=== PATIENT | male | born 1950 | race Caucasian/White ===

== ENCOUNTER 2023-02-14 22:04 | Inpatient (IN) | payer MEDICARE ==
[~2023-02-14] VITALS: Ht 167.6 cm; Wt 89.4 kg
[2023-02-14 22:11] VITALS: BP_SYST 154
[2023-02-14 22:56] LABS: WHITE BLOOD COUNT (AUTO) 6.7 K/uL (4.8-10.8)
[2023-02-14 23:03] LABS: HEMATOCRIT 33.9 % (36-54); HEMOGLOBIN 11.4 g/dL (14.0-18.0); MEAN CORPUSCULAR HEMOGLOBIN 32 pg (27-31); MEAN CORPUSCULAR HGB CONC 34 % (32-36); MEAN CORPUSCULAR VOLUME 94 fL (79.0-98.0); PLATELET COUNT (AUTO) 78 K/uL (130-430); RED BLOOD CELL COUNT(AUTO) 3.62 MIL/uL (4.2-6.2); RED CELL DISTRIBUTION WIDTH 13.7 % (9.0-15.0)
[2023-02-14 23:14] LABS: INR 1.1 (0.80-1.20)
[2023-02-14 23:16] LABS: ALANINE AMINOTRANSFERASE 11 U/L (12-78); ALBUMIN 3.2 g/dL (3.4-4.8); ANION GAP 10 (5-15); ASPARTATE AMINOTRANSFERASE 12 U/L (10-37); CALCIUM 8.5 mg/dL (8.4-11.0); CHLORIDE 104 mmol/L (98-107); CREATININE 2.91 mg/dL (0.55-1.30); GLUCOSE 209 mg/dL (70-99); TOTAL BILIRUBIN 0.3 mg/dL (0.0-1.0); UREA NITROGEN, BLOOD 41 mg/dL (8-21)
[2023-02-14 23:47] LABS: BASOPHILS % (MANUAL) 0 % (0-2); EOSINOPHILS % (MANUAL) 4 % (0-7); LYMPHOCYTES % (MANUAL) 11 % (20-46); MONOCYTES % (MANUAL) 20 % (0-11)
[2023-02-15] MEDS ORDERED: FUROSEMIDE 40 MG/4 ML VIAL IVP ONE (00:15)
[2023-02-15] MEDS ORDERED: ENOXAPARIN SODIUM 40 MG/0.4 ML SYRINGE SUBCUT ONE (04:00)
[2023-02-15 06:35] VITALS: BP_SYST 155
[2023-02-15] MEDS ORDERED: MECO10005 (07:55)
[2023-02-15] MEDS ORDERED: ATEN50TA PO (07:55)
[2023-02-15] MEDS ORDERED: AZEL205.2 NS (07:55)
[2023-02-15] MEDS ORDERED: CALC0.258 PO (07:55)
[2023-02-15] MEDS ORDERED: FURO-150 PO (07:55)
[2023-02-15] MEDS ORDERED: LIP40 PO (07:55)
[2023-02-15] MEDS ORDERED: HYT1 PO (07:55)
[2023-02-15] MEDS ORDERED: NPH,100V2 SQ ×2 (07:55)
[2023-02-15] MEDS ORDERED: CLOP75TA32 PO (07:55)
[2023-02-15] MEDS ORDERED: ERGO1250 PO (07:55)
[2023-02-15] MEDS ORDERED: LEVE500T9 PO (07:55)
[2023-02-15] MEDS ORDERED: FINA5TAB3 PO (07:55)
[2023-02-15] MEDS ORDERED: ACET-2634 PO (07:55)
[2023-02-15] MEDS ORDERED: FERR-69 PO (07:55)
[2023-02-15 08:00] VITALS: BP_SYST 137
[2023-02-15] MEDS ORDERED: *HEPARIN PER PHARMACY XX ONE (09:45)
[2023-02-15] MEDS ORDERED: levETIRAcetam 500 MG TABLET PO ONE (10:00)
[2023-02-15] MEDS ORDERED: DEXTROSE 50% JECT 50 ML DISP.SYRIN IVP PRN (10:00)
[2023-02-15] MEDS ORDERED: ATENOLOL 50 MG TABLET (TENORMIN) PO ONE (10:00)
[2023-02-15] MEDS ORDERED: FINASTERIDE 5 MG TABLET (PROSCAR) PO ONE (10:00)
[2023-02-15] MEDS ORDERED: calcitrioL 0.25 MCG CAPSULE PO SCH (10:00)
[2023-02-15] MEDS ORDERED: ATORVASTATIN 20 MG TABLET PO ONE (10:00)
[2023-02-15] MEDS ORDERED: CLOPIDOGREL BISULFATE 75 MG TABLET PO ONE (10:00)
[2023-02-15 10:16] LABS: BASOPHILS % (AUTO) 0.1 % (0.0-2.0); EOSINOPHILS # (AUTO) 0.3 K/uL (0.0-0.4); EOSINOPHILS % (AUTO) 4.5 % (0.0-4.0); HEMATOCRIT 31.9 % (36-54); HEMOGLOBIN 10.9 g/dL (14.0-18.0); LYMPHOCYTES # (AUTO) 0.8 K/uL (1.0-5.5); LYMPHOCYTES % (AUTO) 10.9 % (20.5-51.5); MEAN CORPUSCULAR HEMOGLOBIN 32 pg (27-31); MEAN CORPUSCULAR HGB CONC 34 % (32-36); MEAN CORPUSCULAR VOLUME 93 fL (79.0-98.0); MONOCYTES # (AUTO) 2.4 K/uL (0.0-1.0); NEUTROPHILS # (AUTO) 3.4 K/uL (1.8-7.7); NEUTROPHILS % (AUTO) 49.5 % (40.0-70.0); PLATELET COUNT (AUTO) 72 K/uL (130-430); RED BLOOD CELL COUNT(AUTO) 3.44 MIL/uL (4.2-6.2); WHITE BLOOD COUNT (AUTO) 6.9 K/uL (4.8-10.8)
[2023-02-15 10:34] LABS: ANION GAP 9 (5-15); CALCIUM 8.6 mg/dL (8.4-11.0); CHLORIDE 106 mmol/L (98-107); CREATININE 2.84 mg/dL (0.55-1.30); GLUCOSE 123 mg/dL (70-99); UREA NITROGEN, BLOOD 38 mg/dL (8-21)
[2023-02-15 10:37] LABS: ALANINE AMINOTRANSFERASE 11 U/L (12-78); ASPARTATE AMINOTRANSFERASE 9 U/L (10-37); PHOSPHORUS 4.3 mg/dL (2.7-4.5); TOTAL BILIRUBIN 0.4 mg/dL (0.0-1.0)
[2023-02-15 11:02] VITALS: BP_SYST 165
[2023-02-15] MEDS ORDERED: ACETAMINOPHEN 500 MG TABLET PO SCH (14:00)
[2023-02-15] MEDS ORDERED: TAMSULOSIN HCL 0.4 MG CAP PO ONE (14:45)
[2023-02-15 17:02] VITALS: BP_SYST 159
[2023-02-15 20:00] VITALS: BP_SYST 123
[2023-02-15] MEDS: ACETAMINOPHEN 325 MG TABLET PO PRN (21:34)
[2023-02-15] MEDS: levETIRAcetam 500 MG TABLET PO SCH (21:34)
[2023-02-15] MEDS: traMADol HCL HCL 50 MG TABLET (ULTRAM) PO PRN (21:34)
[2023-02-16 00:09] VITALS: BP_SYST 129
[2023-02-16 05:42] LABS: HEMATOCRIT 29.5 % (36-54); HEMOGLOBIN 10.2 g/dL (14.0-18.0); MEAN CORPUSCULAR HEMOGLOBIN 32 pg (27-31); MEAN CORPUSCULAR HGB CONC 35 % (32-36); MEAN CORPUSCULAR VOLUME 92 fL (79.0-98.0); PLATELET COUNT (AUTO) 73 K/uL (130-430); RED CELL DISTRIBUTION WIDTH 13.6 % (9.0-15.0); WHITE BLOOD COUNT (AUTO) 6.1 K/uL (4.8-10.8)
[2023-02-16] MEDS: traMADol HCL HCL 50 MG TABLET (ULTRAM) PO PRN ×2 (05:58→20:28)
[2023-02-16] MEDS: ACETAMINOPHEN 325 MG TABLET PO PRN ×2 (05:58→20:29)
[2023-02-16 05:59] LABS: ALANINE AMINOTRANSFERASE 10 U/L (12-78); ALBUMIN 2.8 g/dL (3.4-4.8); ANION GAP 8 (5-15); ASPARTATE AMINOTRANSFERASE 11 U/L (10-37); CALCIUM 8.4 mg/dL (8.4-11.0); CHLORIDE 105 mmol/L (98-107); CHOLESTEROL 85 mg/dL (<200); FREE T4 (FREE THYROXINE) 0.8 ng/dL (0.6-1.6); GLUCOSE 102 mg/dL (70-99); HDL CHOLESTEROL 43 mg/dL (>45); THYROID STIMULATING HORMONE 2.04 uIu/mL (0.34-4.82); TOTAL BILIRUBIN 0.4 mg/dL (0.0-1.0); TRIGLYCERIDES 52 mg/dL (30-150); UREA NITROGEN, BLOOD 37 mg/dL (8-21)
[2023-02-16 07:49] VITALS: BP_SYST 123
[2023-02-16] MEDS: ATENOLOL 50 MG TABLET (TENORMIN) PO SCH (08:25)
[2023-02-16] MEDS: ATORVASTATIN 20 MG TABLET PO SCH (08:26)
[2023-02-16] MEDS: levETIRAcetam 500 MG TABLET PO SCH ×2 (08:26→20:27)
[2023-02-16] MEDS: FINASTERIDE 5 MG TABLET (PROSCAR) PO SCH (08:26)
[2023-02-16] MEDS ORDERED: TAMSULOSIN HCL 0.4 MG CAP PO SCH (09:00)
[2023-02-16] MEDS ORDERED: CLOPIDOGREL BISULFATE 75 MG TABLET PO SCH (09:00)
[2023-02-16 09:47] LABS: BAND % (MANUAL) 3 % (0-6); LYMPHOCYTES % (MANUAL) 31 % (20-46); MONOCYTES % (MANUAL) 16 % (0-11)
[2023-02-16 09:48] LABS: BASOPHILS % (MANUAL) 0 % (0-2); EOSINOPHILS % (MANUAL) 0 % (0-7)
[2023-02-16 11:32] VITALS: BP_SYST 136
[2023-02-16] MEDS ORDERED: FUROSEMIDE 40 MG TABLET PO ONE (12:45)
[2023-02-16 15:29] VITALS: BP_SYST 117
[2023-02-16 15:31] LABS: BILIRUBIN,URINE NEGATIVE (NEGATIVE); CLARITY/URINE CLEAR (CLEAR); COLOR,URINE YELLOW (YELLOW); GLUCOSE,URINE TRACE (NEGATIVE); KETONES,URINE NEGATIVE (NEGATIVE); LEUKOCYTE ESTERASE ,URINE NEGATIVE (NEGATIVE); NITRITE, URINE NEGATIVE (NEGATIVE); PH,URINE 5.5 (5.0-8.0); PROTEIN URINE 2+ (NEGATIVE); UROBILINOGEN,URINE 0.2 (0.2-1.0)
[2023-02-16 15:42] LABS: BLOOD, URINE TRACE (NEGATIVE)
[2023-02-16 15:45] LABS: BACTERIA,URINE None Seen /HPF (None Seen); MUCUS,URINE None Seen /LPF (None Seen); RBC,URINE 0-3 /HPF (0-3); WBC,URINE 0-3 /HPF (0-3)
[2023-02-16 20:00] VITALS: BP_SYST 150
[2023-02-16] MEDS: TAMSULOSIN HCL 0.4 MG CAP PO SCH (20:28)
[2023-02-17 00:33] VITALS: BP_SYST 151
[2023-02-17 05:28] LABS: BASOPHILS % (AUTO) 0.1 % (0.0-2.0); EOSINOPHILS # (AUTO) 0.4 K/uL (0.0-0.4); EOSINOPHILS % (AUTO) 7.5 % (0.0-4.0); HEMATOCRIT 30.5 % (36-54); HEMOGLOBIN 10.6 g/dL (14.0-18.0); LYMPHOCYTES # (AUTO) 0.8 K/uL (1.0-5.5); LYMPHOCYTES % (AUTO) 13.5 % (20.5-51.5); MEAN CORPUSCULAR HEMOGLOBIN 32 pg (27-31); MEAN CORPUSCULAR HGB CONC 35 % (32-36); MEAN CORPUSCULAR VOLUME 92 fL (79.0-98.0); MONOCYTES # (AUTO) 2.2 K/uL (0.0-1.0); MONOCYTES % (AUTO) 37.7 % (1.7-9.3); NEUTROPHILS # (AUTO) 2.4 K/uL (1.8-7.7); NEUTROPHILS % (AUTO) 41.2 % (40.0-70.0); PLATELET COUNT (AUTO) 73 K/uL (130-430); RED BLOOD CELL COUNT(AUTO) 3.33 MIL/uL (4.2-6.2); RED CELL DISTRIBUTION WIDTH 13.4 % (9.0-15.0); WHITE BLOOD COUNT (AUTO) 5.8 K/uL (4.8-10.8)
[2023-02-17 05:39] LABS: ANION GAP 7 (5-15); CALCIUM 8.7 mg/dL (8.4-11.0); CHLORIDE 103 mmol/L (98-107); CREATININE 3.01 mg/dL (0.55-1.30); GLUCOSE 161 mg/dL (70-99); UREA NITROGEN, BLOOD 41 mg/dL (8-21)
[2023-02-17 08:00] VITALS: BP_SYST 148
[2023-02-17] MEDS: ATORVASTATIN 20 MG TABLET PO SCH (10:04)
[2023-02-17] MEDS: CLOPIDOGREL BISULFATE 75 MG TABLET PO SCH (10:04)
[2023-02-17] MEDS: ATENOLOL 50 MG TABLET (TENORMIN) PO SCH (10:05)
[2023-02-17] MEDS: FUROSEMIDE 40 MG TABLET PO SCH (10:05)
[2023-02-17] MEDS: TAMSULOSIN HCL 0.4 MG CAP PO SCH ×2 (10:06→21:39)
[2023-02-17] MEDS: levETIRAcetam 500 MG TABLET PO SCH ×2 (10:06→21:40)
[2023-02-17] MEDS: FINASTERIDE 5 MG TABLET (PROSCAR) PO SCH (10:17)
[2023-02-17 11:31] VITALS: BP_SYST 135
[2023-02-17] MEDS: INSULIN REGULAR, HUMAN 100 UNITS/ML, 3 ML VIAL (humuLIN R) SUBCUT PRN ×2 (11:36→21:36)
[2023-02-17 15:31] VITALS: BP_SYST 110
[2023-02-17 23:51] VITALS: BP_SYST 141
[2023-02-18 00:51] VITALS: BP_SYST 159
[2023-02-18 05:49] LABS: BASOPHILS % (AUTO) 0.2 % (0.0-2.0); EOSINOPHILS # (AUTO) 0.4 K/uL (0.0-0.4); EOSINOPHILS % (AUTO) 7.5 % (0.0-4.0); HEMATOCRIT 30.6 % (36-54); HEMOGLOBIN 10.7 g/dL (14.0-18.0); LYMPHOCYTES # (AUTO) 0.8 K/uL (1.0-5.5); LYMPHOCYTES % (AUTO) 15.8 % (20.5-51.5); MEAN CORPUSCULAR HEMOGLOBIN 32 pg (27-31); MEAN CORPUSCULAR HGB CONC 35 % (32-36); MEAN CORPUSCULAR VOLUME 91 fL (79.0-98.0); MONOCYTES # (AUTO) 1.5 K/uL (0.0-1.0); MONOCYTES % (AUTO) 31.6 % (1.7-9.3); NEUTROPHILS # (AUTO) 2.1 K/uL (1.8-7.7); NEUTROPHILS % (AUTO) 44.9 % (40.0-70.0); PLATELET COUNT (AUTO) 84 K/uL (130-430); RED BLOOD CELL COUNT(AUTO) 3.37 MIL/uL (4.2-6.2); RED CELL DISTRIBUTION WIDTH 13.3 % (9.0-15.0); WHITE BLOOD COUNT (AUTO) 4.8 K/uL (4.8-10.8)
[2023-02-18 06:14] LABS: ALANINE AMINOTRANSFERASE 11 U/L (12-78); ALBUMIN 2.7 g/dL (3.4-4.8); ANION GAP 9 (5-15); ASPARTATE AMINOTRANSFERASE 9 U/L (10-37); CALCIUM 8.7 mg/dL (8.4-11.0); CHLORIDE 102 mmol/L (98-107); CREATININE 2.96 mg/dL (0.55-1.30); GLUCOSE 179 mg/dL (70-99); TOTAL BILIRUBIN 0.5 mg/dL (0.0-1.0); UREA NITROGEN, BLOOD 43 mg/dL (8-21)
[2023-02-18 08:00] VITALS: BP_SYST 164
[2023-02-18] MEDS ORDERED: calcitrioL 0.25 MCG CAPSULE PO SCH (09:00)
[2023-02-18] MEDS: ATORVASTATIN 20 MG TABLET PO SCH (09:26)
[2023-02-18] MEDS: CLOPIDOGREL BISULFATE 75 MG TABLET PO SCH (09:26)
[2023-02-18] MEDS: levETIRAcetam 500 MG TABLET PO SCH (09:27)
[2023-02-18] MEDS: FUROSEMIDE 40 MG TABLET PO SCH (09:27)
[2023-02-18] MEDS: ATENOLOL 50 MG TABLET (TENORMIN) PO SCH (09:28)
[2023-02-18] MEDS: TAMSULOSIN HCL 0.4 MG CAP PO SCH (09:28)
[2023-02-18] MEDS: FINASTERIDE 5 MG TABLET (PROSCAR) PO SCH (09:28)
[2023-02-18] MEDS: INSULIN REGULAR, HUMAN 100 UNITS/ML, 3 ML VIAL (humuLIN R) SUBCUT PRN (11:55)
[2023-02-18 12:21] VITALS: BP_SYST 135
[2023-02-18 15:39] VITALS: BP_SYST 147
[2023-02-18 20:00] VITALS: BP_SYST 148
[2023-02-18 20:30] VITALS: BP_SYST 146
== END 2023-02-18 20:45 | disposition short-term general hospital (02) | DRG 280 ==
LOC: SED 22:04 → STU 02-15 03:57
PROVIDERS: ADMIT Internal Medicine; ATTEND Internal Medicine
DX: I21.4 Non-ST elevation (NSTEMI) myocardial infarction (principal); I50.43 Acute on chronic combined systolic (congestive) and diastolic (congestive) heart failure; I13.0 Hypertensive heart and chronic kidney disease with heart failure and stage 1 through stage 4 chronic kidney disease, or unspecified chronic kidney disease; E44.1 Mild protein-calorie malnutrition; I69.354 Hemiplegia and hemiparesis following cerebral infarction affecting left non-dominant side; N18.4 Chronic kidney disease, stage 4 (severe); N17.9 Acute kidney failure, unspecified; J98.11 Atelectasis; E66.9 Obesity, unspecified; N40.0 Benign prostatic hyperplasia without lower urinary tract symptoms; G40.909 Epilepsy, unspecified, not intractable, without status epilepticus; E11.22 Type 2 diabetes mellitus with diabetic chronic kidney disease; D69.6 Thrombocytopenia, unspecified; E78.5 Hyperlipidemia, unspecified; D63.8 Anemia in other chronic diseases classified elsewhere; I35.0 Nonrheumatic aortic (valve) stenosis; Z20.822 Contact with and (suspected) exposure to COVID-19; Z90.49 Acquired absence of other specified parts of digestive tract; Z79.4 Long term (current) use of insulin; Z79.899 Other long term (current) drug therapy; Z68.31 Body mass index [BMI] 31.0-31.9, adult
CPT/HCPCS: 36415; 70450-TC; 71045; 76376; 76770; 80048; 80053; 80061; 81000; 82550; 83735; 83880; 84100; 84439; 84443; 84484; 85007; 85025; 85027; 85610-TC; 85730-TC; 87086; 93005; 93306; 96374; 97110-GP; 97116-GP; 97530-GP; 99285; G0378; J1940